=== PATIENT | male | born 1955 | race Caucasian/White ===

== ENCOUNTER → 2021-11-18 09:01 | Outpatient (CLI) | payer OTHER, MEDICAID, SELFPAY ==
[2021-11-18 11:21] LABS: COVID19 -Nasal RAPID Negative (Negative)
== END ==
PROVIDERS: Family Provider Internal Medicine; Visit Provider Family Medicine Sleep Medicine
DX: Z20.822 Contact with and (suspected) exposure to COVID-19 (principal)
CPT/HCPCS: 87635; C9803

== ENCOUNTER 2021-11-21 07:33 | Day surgery (SDC) | payer OTHER, MEDICAID, SELFPAY ==
--- NOTE | 2021-11-21 | PATH_ITS ---
[facility] Accession Number: [id number] . 01 Material submitted: . PART A: stomach - ANTRAL PART B: stomach - GASTRIC BODY . 02 Diagnosis: A. Antral: Gastric antral mucosa with mild chronic inflammation. Negative for Helicobacter organisms by immunohistochemistry. Negative for intestinal metaplasia. Negative for dysplasia or malignancy. . B. Gastric Body: Gastric body-type mucosa with mild chronic inflammation. Negative for Helicobacter organisms by immunohistochemistry. Negative for intestinal metaplasia. Negative for dysplasia or malignancy. [facility] 11/25/2021 1339 Local . 02 Electronically signed: . Daisy Blank MD, Pathologist NPI- [id number] . 01 Gross description: . Part A: ANTRAL: Received in formalin is 1 fragment(s) of marti, soft tissue measuring 0.4 x 0.3 x 0.3 cm submitted entirely in 1 cassette(s) Part B: GASTRIC BODY: Received in formalin are 2 fragment(s) of marti, soft tissue measuring 0.3 x 0.2 x 0.1 cm to 0.1 x 0.1 x 0.1 cm submitted entirely in 1 cassette(s) /[facility]BJ 11/22/2021 0923 Local . 02 Microscopic: . A. An immunohistochemical stain is performed to evaluate for Helicobacter organisms and is negative. The control stain shows appropriate reactivity. . B. An immunohistochemical stain is performed to evaluate for Helicobacter organisms and is negative. The control stain shows appropriate reactivity. . . * This test was developed and its performance characteristics determined by [facility]. It has not been cleared or approved by the U.S. Food and Drug Administration. The FDA has determined that such clearance or approval is not necessary. This test is used for clinical purposes. It should not be regarded as investigational or for research. . 02 Pathologist provided ICD-10: Z86.010, R11.0 . 02 CPT . 146872, 233040, U47917 Specimen Comment: A courtesy copy of this report has been sent to [facility] Performed at: 01 [facility] [address] [address], [place], [place] [id number] MD Luis Virk MD Phone: [phone] Performed at: 02 [facility] [id number] [place] [id number] MD Ivy Rocha MD Phone: [phone]
[2021-11-21 08:00] VITALS: BP 141/85; PULSE 60; RESP 17; TEMP 36.3; O2SAT 100; BMI 31.1
[2021-11-21] MEDS: SODIUM CHLORIDE 0.9% 1,000 ML 150 ML IV (08:00)
--- NOTE | 2021-11-21 08:39 | P.HP_ITS ---
History of Present Illness History of Present Illness Date Patient Seen: 11/21/21 Time Patient Seen: 08:39 Chief complaint: SDC Narrative: Personal history of colon polyps. Nausea. Improved with more optimal PPI dosing. I reviewed my note from August 23, 2021. Patient History Surgical History History of appendectomy Stented coronary artery Family & Social History Social History: household members spouse Tobacco & Substance use: Tobacco type cigarettes Smoking Status Former smoker alcohol intake current alcohol intake frequency a few times a week Substance Use Type does not use Meds Home Medications and Allergies Home Medications Medication Instructions Recorded Confirmed Type aspirin 81 mg chewable tablet 81 mg PO DAILY 11/18/21 11/21/21 History atorvastatin 40 mg tablet 40 mg PO DAILY 11/18/21 11/21/21 History omeprazole 20 mg capsule,delayed 20 mg PO DAILY 11/18/21 11/21/21 History release Allergies Allergy/AdvReac Type Severity Reaction Status Date / Time No Known Drug Allergies Allergy Verified 11/18/21 13:37 Review of Systems Review of Systems ROS: Yes All systems reviewed with the patient and are negative except as other shaver documented Exam Vital Signs (past 8 hours): - 11/21/21 08:00 Temperature 97.3 F L Pulse Rate 60 Respiratory Rate 17 Blood Pressure 141/85 H Pulse Oximetry 100 Oxygen Delivery Method Room Air Const General: cooperative and comfortable Orientation: alert HENMT Head: normocephalic Ears: external ears normal Nose: external nose normal Face and sinus: normal facial exam Mouth: oral mucosae normal Eyes General: appearance normal, both eyes and all related structures Neck Neck: normal visual inspection Chest Chest: normal inspection of the chest Resp Effort & Inspection: normal respiratory effort Cardio Rate: regular rate GI Inspection: normal to inspection Skin General: no rashes or lesions noted and No jaundice Neuro General: patient alert and moves all extremities Cognition: normal cognition Speech: speech normal Extrem General: no pedal edema Psych Appearance: grossly normal Assessment & Plan Assessment & Plan narrative: 66-year-old male with a personal history of colon polyps and chronic reflux. The nausea he reported is about 70% improved. Both EGD and colonoscopy are pursued today. Time Spent With Patient Critical Care time: I spent a total of [] minutes of critical care time on this patient's care today; this time is exclusive of procedural time.
--- NOTE | 2021-11-21 08:41 | PM.PREOP ---
Pre-operative Note COVID-19 COVID-19 status: Negative Result date/Date tested (Pos, Neg/Pending): 11/18/21 Criteria for continued procedure: Possibility delay results in more complex future surgery or treatment Interval Note History & Physical reviewed/Exam performed by Physician: Yes Changes to H&P: Yes ASA Class (for procedural sedation): II
--- NOTE | 2021-11-21 09:42 | P.OP.EGD&C_ITS ---
Operative Date/Time/Diagnoses Date of procedure: 11/21/21 Time of procedure: 09:42 Pre-op diagnosis: Nausea GERD personal history of colon polyps Post-op diagnosis: same Procedure & Clinicians Study performed: EGD with biopsies and colonoscopy Same procedure as scheduled: Yes Indications: Nausea GERD and a personal history of colon polyps Surgeon: Chai Hernandes Procedure Notes SCOAP/Timeout: Done Procedure in detail: After the risks and benefits were explained, written and verbal informed consent was obtained. The patient was brought into the procedure room and placed into the left lateral decubitus position. Please see nurse dimension stone quarry supervisor notes for sedation details. The scope was introduced into the mouth through the bite block and advanced under direct visualization to the 2nd portion of the duodenum. The scope was slowly withdrawn carefully examining the mucosa for any defects or lesions. Retroflexed views were accomplished in the stomach. The stomach was decompressed, the scope was then removed from the patient who tolerated the procedure well. Patient was turned around a digital rectal examination accomplished grade 1 internal hemorrhoids were noted. The scope was introduced into the rectum and advanced to the cecum as identified by the appendiceal orifice and ileocecal valve. The scope was slowly withdrawn to carefully examine the mucosa for any defects or lesions. Multiple direct views were made through the dentate line for exclusion of pathology the colon was decompressed scope removed the patient tolerated procedure well. Bowel prep adequate Adult colonoscope Scope withdrawal time: 7 minutes Sedation minutes: 21 Complications: none Impression: 1. Duodenum: This was visually unremarkable from the bulb through the 2nd portion. 2. Stomach: No ulcers no outlet obstruction no mass lesions. Retroflexed views of the LES were unremarkable. There was mild gastropathy in the antrum and a macronodular appearance to the remainder of the gastric mucosa. Antral biopsies were acquired for exclusion of H pylori. Gastric body biopsies were submitted separately for histopathologic analysis. 3. Esophagus: The squamocolumnar junction correlated with the top of the gastric folds. GEJ was at approximately 40 cm from the incisors. No suggestion of Barretts. No evidence of erosive esophagitis. In the mid to proximal esophagus there was evidence of scattered venous blebs. No high-risk features. 4. Colon: No significant polyps mass lesions or inflammatory features identified throughout. Grade 1 hemorrhoids were noted on direct views Endoscopic diagnosis 1. Gastropathy 2. Proximal esophageal venous blebs 3. Hemorrhoids grade 1 Post-procedure Plan for aftercare: 1. Continue optimal dosing of omeprazole as discussed in the office. 2. If Helicobacter is found it will need to be retic aided by standard triple therapy. 3. Considering prior history of colon polyps, repeat colonoscopy is suggested for 7 years. Disposition: PACU
[2021-11-21 09:43] VITALS: BP 104/69; PULSE 57; RESP 10; TEMP 36.6; O2SAT 97
[2021-11-21 09:49] VITALS: BP 93/64; PULSE 55; RESP 14; O2SAT 96
[2021-11-21 09:55] VITALS: BP 108/76; PULSE 60; RESP 18; O2SAT 98
[2021-11-21 10:00] VITALS: BP 125/81; PULSE 52; RESP 16; O2SAT 98
== END 2021-11-21 10:19 | disposition home or self-care (01) ==
LOC: ENDO 07:38
PROVIDERS: Family Provider Internal Medicine; PCP Internal Medicine; Referring Provider Internal Medicine Gastroenterology; Visit Provider Internal Medicine Gastroenterology
PROC: 0DJ08ZZ Inspection of Upper Intestinal Tract, Via Natural or Artificial Opening Endoscopic (ICD-10-PCS; CPT 43235; principal; 2021-11-21 09:00)
PROC: 0DJD8ZZ Inspection of Lower Intestinal Tract, Via Natural or Artificial Opening Endoscopic (ICD-10-PCS; CPT 45378; 2021-11-21 09:00)
DX: Z12.11 Encounter for screening for malignant neoplasm of colon (principal); Z86.010 Personal history of colon polyps; K21.9 Gastro-esophageal reflux disease without esophagitis; R11.0 Nausea; K31.9 Disease of stomach and duodenum, unspecified; K64.0 First degree hemorrhoids; K29.50 Unspecified chronic gastritis without bleeding
CPT/HCPCS: 43239; 45378; J2704